=== PATIENT | female | born 1995 | race Caucasian/White ===

== ENCOUNTER 2020-06-17 19:20 | Emergency (ER) | payer MEDICAID, OTHER ==
[~2020-06-17] VITALS: Ht 175.3 cm; Wt 91.5 kg
[2020-06-17 19:31] VITALS: BP 126/82
== END 2020-06-17 20:25 | disposition home or self-care (01) ==
LOC: ED 19:25
DX: Z77.21 Contact with and (suspected) exposure to potentially hazardous body fluids (principal); W46.1XXA Contact with contaminated hypodermic needle, initial encounter
CPT/HCPCS: 36415; 86705; 86706; 86803; 87340; 87806; 99283; G0475